=== PATIENT | female | born 1945 | race Hispanic/Latino ===

== ENCOUNTER 2017-07-28 13:52 | Outpatient (CLI) | payer MEDICARE ==
--- NOTE | 2017-07-29 08:16 | Mammography Report ---
BILATERAL DIGITAL SCREENING MAMMOGRAM with CAD : 07/28/17 13:52:00 CLINICAL: Routine screening. COMPARISON:07/09/16 FINDINGS: The breasts are heterogeneously dense, which may obscure small masses.Stable bilateral scattered calcifications with benign morphology. No mass, architectural distortion or suspicious calcifications. IMPRESSION: No mammographic evidence of malignancy. BI-RADS CATEGORY: 2 -- Benign RECOMMENDATION: Routine mammographic screening in one year. COMMENT: Patient follow-up letters are generated by our [employer] application.
== END 2017-07-28 13:53 | disposition home or self-care (01) ==
LOC: SPVWC 13:52
PROVIDERS: ATTEND Internal Medicine
DX: Z12.31 Encounter for screening mammogram for malignant neoplasm of breast (principal)
CPT/HCPCS: 77067; G0202

== ENCOUNTER 2019-10-05 10:33 | Outpatient (CLI) | payer MEDICARE ==
--- NOTE | 2019-10-05 12:32 | Mammography Report ---
DIGITAL SCREENING MAMMOGRAM WITH CAD, 10/05/2019 INDICATION: Routine screening mammography. TECHNIQUE: Digital bilateral 2D mammography was obtained in the craniocaudal and mediolateral obliq ue projections. This examination was interpreted with the benefit of Computer-Aided Detection analysi s. COMPARISON: 08/06/2018 FINDINGS: Breast Density: The breasts are heterogeneously dense, which may obscure small masses. There is no evidence of dominant mass, suspicious calcifications or architectural distortion in eithe r breast. Scattered bilateral calcifications with benign morphology are unchanged compared to the las t exam. IMPRESSION: No mammographic evidence of malignancy. Follow up recommendation: Routine yearly BI-RADS Category 2: Benign. A "normal" or negative report should not discourage follow up or biopsy of a clinically significant f inding. A written summary of these findings will be mailed to the patient. The patient will be entered into a mammography reporting system which will generate a reminder letter for the patient's next appointmen t at the appropriate interval. The [employer] recommends yearly mammograms starting at age 40 and continuing as l luis eduardo as a woman is in good health. Breast MRI is recommended for women with an approximate 20-25% or greater lifetime risk of breast cancer, including women with a strong family history of breast or ova anabel cancer or who have been treated for Hodgkin's disease. Signer Name: Adeel Jorgensen MD Signed: 10/05/2019 12:28 PM Workstation Name: [id number]
== END 2019-10-05 10:34 | disposition home or self-care (01) ==
LOC: MAMMO 10:33
PROVIDERS: ATTEND Internal Medicine
DX: Z12.31 Encounter for screening mammogram for malignant neoplasm of breast (principal)
CPT/HCPCS: 77067

== ENCOUNTER 2020-11-22 09:03 | Outpatient (CLI) | payer MEDICARE ==
--- NOTE | 2020-11-22 10:56 | Mammography Report ---
DIGITAL SCREENING MAMMOGRAM WITH CAD, 11/22/2020 CLINICAL INFORMATION / INDICATION: Routine screening TECHNIQUE: Digital bilateral 2D mammography was obtained in the craniocaudal and mediolateral obliqu e projections. This examination was interpreted with the benefit of Computer-Aided Detection analysis . COMPARISON: 10/05/2019 and multiple priors FINDINGS: Breast Density: The breasts are heterogeneously dense, which may obscure small masses. No dominant mass, suspicious calcifications, or architectural distortion in the left breast. Multiple bilateral benign-appearing calcifications are again seen with mild progression noted. Howeve r, focally in the far posterior right lateral breast an increase in linearly distributed calcificatio ns is seen. IMPRESSION: Increasing focal calcifications on the right Follow up recommendation: Right magnification views BI-RADS Category 0: Incomplete. Needs additional imaging evaluation and/or prior mammograms for monique flannery. A "normal" or negative report should not discourage follow up or biopsy of a clinically significant f inding. A written summary of these findings will be mailed to the patient. The patient will be entered into a mammography reporting system which will generate a reminder letter for the patient's next appointmen t at the appropriate interval. The [employer] recommends yearly mammograms starting at age 40 and continuing as l luis eduardo as a woman is in good health. Breast MRI is recommended for women with an approximate 20-25% or greater lifetime risk of breast cancer, including women with a strong family history of breast or ova anabel cancer or who have been treated for Hodgkin's disease. Signer Name: Vinod Schafer MD Signed: 11/22/2020 10:52 AM Workstation Name: [email or web address]
== END 2020-11-22 09:04 | disposition home or self-care (01) ==
LOC: MAMMO 09:03
PROVIDERS: ATTEND Internal Medicine
DX: Z12.31 Encounter for screening mammogram for malignant neoplasm of breast (principal); N64.89 Other specified disorders of breast
CPT/HCPCS: 77067

== ENCOUNTER 2020-12-20 11:24 | Outpatient (CLI) | payer MEDICARE ==
--- NOTE | 2020-12-20 18:00 | Mammography Report ---
DIGITAL DIAGNOSTIC MAMMOGRAM WITH CAD , 12/20/2020 CLINICAL INFORMATION / INDICATION: Recent abnormal screening mammogram R92.8 TECHNIQUE: Digital right mammographic imaging was performed. Magnification views were obtained. This examination was interpreted with the benefit of Computer-aided Detection analysis. COMPARISON: Recent mammogram 11/22/2020, prior mammograms 10/05/2019 and 08/06/2018 FINDINGS: Breast Density: The breasts are heterogeneously dense, which may obscure small masses. There are increasing coarse calcifications within the lower outer quadrant of the right breast, poste rior depth. There are multiple additional sites of similar calcifications scattered throughout both b reasts. 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 Rather than biopsy, I would pre yolande a 6 month follow-up right mammogram with magnification views to assess stability. IMPRESSION: Highly likely benign calcifications right breast, lower outer quadrant. Calcifications ar e similar to other calcifications noted bilaterally, and most likely represent degenerating fibroaden odn. Recommend 6 month follow-up right mammogram with magnification views. Follow up recommendation: Short term interval follow up BI-RADS Category 3: Probably Benign. Followup in 6 months. A "normal" or negative report should not discourage follow up or biopsy of a clinically significant f inding. A written summary of these findings will be mailed to the patient. The patient will be entered into a mammography reporting system which will generate a reminder letter for the patient's next appointmen t at the appropriate interval. According to the [employer], yearly mammograms are recommended starting at age 40 and continuing as long as a woman is in good health. Breast MRI is recommended for women with an ros roximately 20-25% or greater lifetime risk of breast cancer, including women with a strong family his tory of breast or ovarian cancer and women who have been treated for Hodgkin's disease. Signer Name: Jazz Appiah MD Signed: 12/20/2020 5:56 PM Workstation Name: [id number]
== END 2020-12-20 11:25 | disposition home or self-care (01) ==
LOC: MAMMO 11:24
PROVIDERS: ATTEND Internal Medicine
DX: R92.1 Mammographic calcification found on diagnostic imaging of breast (principal)

== ENCOUNTER 2021-05-07 10:10 | Outpatient (CLI) | payer MEDICARE ==
--- NOTE | 2021-05-07 11:01 | Mammography Report ---
DIGITAL DIAGNOSTIC MAMMOGRAM WITH CAD , 05/07/2021 CLINICAL INFORMATION / INDICATION: This is a 6 month follow-up evaluation of the right breast for david cifications. TECHNIQUE: Digital right mammographic imaging was performed. This examination was interpreted with the benefit of Computer-aided Detection analysis. COMPARISON: Diagnostic mammogram, 12/20/2020. Bilateral screening mammogram, 11/22/2020, 10/05/2019 and 08/06/2018 FINDINGS: Breast Density: The breasts are heterogeneously dense, which may obscure small masses. Magnification views of the right breast confirm stability of the linear coarse and dystrophic calcifi cations in the lower outer quadrant posterior depth. These do not appear to have significantly change d in number or morphology when compared to the previous diagnostic mammogram. No new or suspicious ca lcifications are identified. Additional groups of coarse dystrophic calcifications are present throug hout the right breast. IMPRESSION: 1. 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 Given her lack of interval change and additional c oarse groupings of calcifications throughout both breasts, these calcifications most likely represent a benign etiology. Recommend one additional diagnostic mammogram in 6 months to assess continued sta bility. The patient will be due for bilateral mammogram at the time of her return visit to stay on ro utine screening schedule. Follow up recommendation: Short term follow up in 6 months. BI-RADS Category 3: Probably Benign. Followup in 6 months. A "normal" or negative report should not discourage follow up or biopsy of a clinically significant f inding. A written summary of these findings will be mailed to the patient. The patient will be entered into a mammography reporting system which will generate a reminder letter for the patient's next appointmen t at the appropriate interval. According to the [employer], yearly mammograms are recommended starting at age 40 and continuing as long as a woman is in good health. Breast MRI is recommended for women with an ros roximately 20-25% or greater lifetime risk of breast cancer, including women with a strong family his tory of breast or ovarian cancer and women who have been treated for Hodgkin's disease. Signer Name: Rhea Delgado MD Signed: 05/07/2021 10:57 AM Workstation Name: [email or web address]
== END 2021-05-07 10:11 | disposition home or self-care (01) ==
LOC: MAMMO 10:10
PROVIDERS: ATTEND Internal Medicine
DX: R92.1 Mammographic calcification found on diagnostic imaging of breast (principal)

== ENCOUNTER 2021-11-23 09:08 | Outpatient (CLI) | payer MEDICARE ==
--- NOTE | 2021-11-23 10:14 | Mammography Report ---
DIGITAL DIAGNOSTIC MAMMOGRAM WITH CAD CONVENTIONAL, 11/23/2021 CLINICAL INFORMATION / INDICATION: Follow-up right breast calcifications. Screening mammography left breast. TECHNIQUE: Digital bilateral mammographic imaging was performed. Magnification views were obtained. This examination was interpreted with the benefit of Computer-aided Detection analysis. COMPARISON: 06/29/14 05/07/21. FINDINGS: Breast Density: The breasts are heterogeneously dense, which may obscure small masses. No dominant mass, suspicious calcifications or architectural distortion in the left breast. There are benign-appearing coarse calcifications scattered throughout each breast. There are grouped calcifications in the right lower/outer posterior breast in a linear distribution, increasing over se rial exams. The calcifications are coarse/heterogeneous and pleomorphic on magnification views. The l ength of the abnormality is approximately 4 cm. IMPRESSION: Grouped calcifications in the lower outer quadrant posteriorly are in a linear distributi on and increasing over serial studies. Biopsy is recommended. Follow up recommendation: Biopsy BI-RADS Category 4: SUSPICIOUS FOR MALIGNANCY. A "normal" or negative report should not discourage follow up or biopsy of a clinically significant f inding. A written summary of these findings will be mailed to the patient. The patient will be entered into a mammography reporting system which will generate a reminder letter for the patient's next appointmen t at the appropriate interval. According to the [employer], yearly mammograms are recommended starting at age 40 and continuing as long as a woman is in good health. Breast MRI is recommended for women with an ros roximately 20-25% or greater lifetime risk of breast cancer, including women with a strong family his tory of breast or ovarian cancer and women who have been treated for Hodgkin's disease. Signer Name: Manuel Montgomery MD Signed: 11/23/2021 10:10 AM Workstation Name: [id number]
== END 2021-11-23 09:09 | disposition home or self-care (01) ==
LOC: MAMMO 09:08
PROVIDERS: ATTEND Internal Medicine
DX: R92.1 Mammographic calcification found on diagnostic imaging of breast (principal)
CPT/HCPCS: 77066

== ENCOUNTER 2021-12-12 09:46 | Outpatient (CLI) | payer MEDICARE ==
--- NOTE | 2021-12-12 14:50 | Mammography Report ---
STEREOTACTIC GUIDED RIGHT BREAST BIOPSY, 12/12/2021 CLINICAL INFORMATION / INDICATION: R92.8. COMPARISON: Diagnostic mammogram dated 11/23/2021 and 05/07/2021 PROCEDURE: Risks, benefits, and indications to the procedure were discussed with the patient in detail, includin g bleeding, infection, hematoma formation, and inadequate tissue sampling. The patient agreed to proc eed with both verbal and written consent. A timeout procedure was performed with 2 patient identifier s. The patient was placed in the seated upright position at the mammogram machine. Targeted stereotactic images were obtained of the area of interest. The targeted area was identified and coordinates were determined. The breast was cleansed and prepped in the usual sterile fashion. Lidocaine 1% with and w ithout epinephrine was used for local anesthesia. Under direct stereotatic guidance, an 8 gauge Mammo tome biopsy device was advanced to the correct position and multiple vacuum-assisted core samples wer e obtained. Postbiopsy images confirm satisfactory tissue sampling within the biopsy cavity. A biopsy marker was then deployed at the biopsy site. The biopsy device was removed. Hemostasis was achieved with manual pressure. A sterile pressure dressing was applied to the skin. Post-biopsy mammogram was obtained indicating appropriate positioning of biopsy clip and biopsy site. The patient tolerated the procedure without difficulty. No complications were encountered. Postbiopsy instructions were discussed with the patient and given in writing. IMPRESSION: 1. Technically successful stereotactic guided right breast biopsy. Biopsy results are pending and will be reported in an addendum. Signer Name: Nathan Lewis DO Signed: 12/12/2021 2:38 PM Workstation Name: [id number]
== END 2021-12-12 09:47 | disposition home or self-care (01) ==
LOC: SPVWC 09:46
PROVIDERS: ATTEND Internal Medicine
DX: R92.0 Mammographic microcalcification found on diagnostic imaging of breast (principal); R92.8 Other abnormal and inconclusive findings on diagnostic imaging of breast; N64.89 Other specified disorders of breast; I10 Essential (primary) hypertension; Z88.8 Allergy status to other drugs, medicaments and biological substances; Z88.6 Allergy status to analgesic agent; Z90.710 Acquired absence of both cervix and uterus
CPT/HCPCS: 19081; 77065; 88305; A4648